=== PATIENT | male | born 1970 | race Caucasian/White ===

== ENCOUNTER 2016-02-18 13:12 | Inpatient (IN) | payer OTHER ==
[2016-02-18 13:23] VITALS: BMI 24.5
--- NOTE | 2016-02-18 14:13 | HP ---
COWS - Scale Resting Pulse: 0= [place] 80 or Below Sweatin=Flushed/Facial Moisture Restless Observation: 3= Extraneous Movement Pupil Size: 2= Moderately Dilated Bone or Joint Aches: 2= Severe Diffuse Aches Runny Nose/ Eye Tearin= Runny Nose/Eyes GI Upset > 30mins: 3= Vomiting/Diarrhea Tremor Observation: 2= Slight Tremor Visible Yawning Observation: 2= >3x During Session Anxiety or Irritability: 2=Irritable/Anxious Goose Flesh Skin: 0=Smooth Skin COWS Score: 20 Admission ROS BHS - HPI Chief Complaint: i need help to stop using heroin Allergies/Adverse Reactions: Allergies Allergy/AdvReac Type Severity Reaction Status Date / Time No Known Allergies Allergy Verified 02/18/16 14:03 History of Present Illness: this 45 years old male with heroin dependence,withdrawal symptom,last detox [place] 2014 bipolar disorder depression nicotine dependence weight loss longest period of sobriety 2 years Exam Limitations: No Limitations - Ebola screening Have you traveled outside of the country in the last 21 days: No Have you been sick,other than usual withdrawal symptoms: No Do you have a fever: No - Review of Systems Constitutional: Chills, Diaphoresis, Loss of Appetite, Malaise, Night Sweats, Changes in sleep, Weakness, Unexplained wgt Loss EENT: reports: Tearing, Nose Congestion Respiratory: reports: No Symptoms reported Cardiac: reports: Palpitations GI: reports: Constipated, Nausea, Poor Appetite, Abdominal cramping : reports: No Symptoms Reported Musculoskeletal: reports: Back Pain, Joint Pain, Muscle Pain, Joint Stiffness Integumentary: reports: Dryness Neuro: reports: Headache, Tremors Endocrine: reports: No Symptoms Reported Hematology: reports: No Symptoms Reported Psychiatric: reports: Depressed, other (bipolar disorder) Patient History - Patient Medical History Hx Anemia: No Hx Asthma: No Hx Chronic Obstructive Pulmonary Disease (COPD): No Hx Cancer: No Hx Cardiac Disorders: No Hx Congestive Heart Failure: No Hx Hypertension: No Hx Hypercholesterolemia: No Hx Pacemaker: No HX Cerebrovascular Accident: No Hx Seizures: No Hx Dementia: No Hx Diabetes: No Hx Gastrointestinal Disorders: No Hx Liver Disease: No Hx Genitourinary Disorders: No Hx Sexually Transmitted Disorders: No Hx Renal Disease (ESRD): No Hx Thyroid Disease: No Hx Human Immunodeficiency Virus (HIV): No (last 08/19) Hx Hepatitis C: Yes (monitoring by pmd) Hx Depression: Yes Hx Suicide Attempt: Yes (hang himself) Hx Bipolar Disorder: Yes Hx Schizophrenia: No Other Medical History: depression,no suicidal,no homicidal - Patient Surgical History Past Surgical History: No - PPD History Previous Implant?: Yes Documented Results: Negative w/o proof Implanted On Prior [facility] Admission?: No PPD to be Administered?: Yes - Smoking Cessation Smoking history: Current every day smoker Have you smoked in the past 12 months: Yes Aproximately how many cigarettes per day: 6 Cigars Per Day: 0 Hx Chewing Tobacco Use: No Initiated information on smoking cessation: Yes 'Breaking Loose' booklet given: 02/18/16 - Substance & Tx. History Hx Alcohol Use: No Hx Substance Use: Yes Substance Use Type: Heroin Hx Substance Use Treatment: Yes ([address] [place] [address]) - Substances Abused Heroin Route: Injection Frequency: Daily Amount used: 4 BAGS Age of first use: 16 Date of Last Use: 02/18/16 Family Disease History - Family Disease History Family History: Denies Admission Physical Exam [facility] - Vital Signs Vital Signs: Vital Signs - 24 hr 02/18/16 13:20 Temperature 98.3 F Pulse Rate 79 Respiratory 20 Rate Blood Pressure 139/85 - Physical General Appearance: Yes: Moderate Distress, Tremorous, Sweating, Anxious HEENTM: Yes: Nasal Congestion Respiratory: Yes: Lungs Clear Neck: Yes: Within Normal Limits Breast: Yes: Within Normal Limits Cardiology: Yes: Within Normal Limits, Regular Rhythm, Regular Rate, S1, S2 Abdominal: Yes: Normal Bowel Sounds, Non Tender, Flat, Soft, Organomegaly Genitourinary: Yes: Within Normal Limits Back: Yes: Muscle Spasm Musculoskeletal: Yes: Back pain, Joint Stiffness, Muscle Pain Extremities: Yes: Tremors 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 NML intact, Fully Oriented, Alert, Motor Strength 5/5 Integumentary: Yes: Dry Lymphatic: Yes: Within Normal Limits - Diagnostic (1) Opioid dependence with withdrawal Current Visit: Yes Status: Acute (2) Bipolar disorder Current Visit: Yes Status: Acute (3) Hepatitis C Current Visit: Yes Status: Acute (4) Weight loss Current Visit: Yes Status: Acute (5) Nicotine dependence Current Visit: Yes Status: Acute Cleared for Admission [facility] - Detox or Rehab [facility] Level of Care: Medically Managed Detox Regimen/Protocol: Methadone BHS Breath Alcohol Content Breath Alcohol Content: 0 Urine Drug Screen - Results Drug Screen Negative: No Urine Drug Screen Results: OPI-Opiates
[2016-02-18] MEDS ORDERED: diphenhydrAMINE HCL 50 MG CAPSULE PO PRN (14:27)
[2016-02-18] MEDS ORDERED: ACETAMINOPHEN 325 MG TABLET (FP) PO PRN (14:27)
[2016-02-18] MEDS ORDERED: MAG HYDROX/AL HYDROX/SIMETH 30 ML UNIT-DOSE CUP PO PRN (14:27)
[2016-02-18] MEDS ORDERED: MAGNESIUM HYDROX 2400MG/30ML ORAL SUSPENSION 30 ML CUP PO PRN (14:27)
[2016-02-18] MEDS ORDERED: LOPERAMIDE HCL 2 MG CAPSULE PO PRN (14:27)
[2016-02-18] MEDS ORDERED: hydrOXYzine PAMOATE 50 MG CAPSULE (FP) PO PRN (14:27)
[2016-02-18] MEDS ORDERED: IBUPROFEN 400 MG TABLET (FP) PO PRN (14:27)
[2016-02-18] MEDS ORDERED: P-EPHED 60MG/TRIPROLIDI 2.5MG TABLET PO PRN (14:27)
[2016-02-18] MEDS ORDERED: MENTHOL/PHENOL 1 EACH UD MM PRN (14:27)
[2016-02-18] MEDS ORDERED: MAGNESIUM CITRATE 300 ML BOTTLE PO PRN (14:27)
[2016-02-18] MEDS ORDERED: guaiFENesin/D-METHORPHAN HB 10 ML UNIT-DOSE CUPS PO PRN (14:27)
[2016-02-18] MEDS ORDERED: CYCLOBENZAPRINE HCL 10 MG TABLET (FP) PO PRN (14:32)
[2016-02-18] MEDS ORDERED: METHADONE HCL 10 MG TABLET (FOR DETOX USE ONLY) PO ONE ×2 (15:31→23:00)
[2016-02-18] MEDS: diazePAM 5 MG TABLET PO PRN (15:47)
[2016-02-18] MEDS: NICOTINE 21 MG/24 HOURS TOPICAL PATCH TD SCH (15:47)
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
[2016-02-18 17:54] LABS: URINE APPEARANCE CLOUDY; URINE BILIRUBIN NEGATIVE (NEGATIVE); URINE BLOOD NEGATIVE (NEGATIVE); URINE COLOR YELLOW; URINE GLUCOSE (UA) NEGATIVE (NEGATIVE); URINE KETONE NEGATIVE (NEGATIVE); URINE LEUK ESTERASE NEGATIVE (NEGATIVE); URINE NITRITE NEGATIVE (NEGATIVE); URINE PROTEIN NEGATIVE (NEGATIVE); URINE UROBILINOGEN NEGATIVE E.U./dl (0.2-1.0)
[2016-02-18] MEDS: THIAMINE HCL 100 MG TABLET (FP) PO SCH (22:05)
[2016-02-18] MEDS: QUEtiapine FUMARATE 200 MG TABLET PO SCH (22:05)
[2016-02-18] MEDS: cloNIDine HCL 0.1 MG TABLET PO SCH (22:06)
[2016-02-19] MEDS ORDERED: METHADONE HCL 10 MG TABLET (FOR DETOX USE ONLY) PO ONE (10:00)
[2016-02-19] MEDS: NICOTINE 21 MG/24 HOURS TOPICAL PATCH TD SCH (10:13)
[2016-02-19] MEDS: PRENATAL VITAMINS W/ FOLIC ACID TABLET (FP) PO SCH (10:14)
[2016-02-19] MEDS: cloNIDine HCL 0.1 MG TABLET PO SCH ×2 (10:14→22:10)
[2016-02-19 10:31] LABS: MCH 30.1 pg (25.7-33.7); MCHC 33.4 g/dl (32.0-35.9); MEAN PLT VOLUME 9.2 fl (7.5-11.1); PLATELET COUNT 282 K/MM3 (134-434); RDW 14.9 % (11.9-15.9); WHITE BLOOD COUNT 7.9 K/mm3 (4.0-10.0)
[2016-02-19 11:25] LABS: ALBUMIN 4.1 g/dl (3.4-5.0); ALK PHOS 99 U/L (45-117); ANION GAP 7 (8-16); BILIRUBIN,TOTAL 0.4 mg/dL (0.2-1.0); CALCIUM 9.9 mg/dL (8.5-10.1); CO2 29 mmol/L (21-32); GLUCOSE,RANDOM 100 mg/dL (74-106); SGOT/AST 33 U/L (15-37); SGPT/ALT 54 U/L (12-78); TOT PROT 8.5 g/dl (6.4-8.2)
[2016-02-19 11:34] LABS: HIV 1 & 2 AB NEGATIVE; HIV 1 AGp24 NEGATIVE
[2016-02-19] MEDS ORDERED: INFLUENZA VACCINE 45 MCG/0.5 ML (MDV 16-17) IM ONE (12:00)
[2016-02-19 12:15] LABS: SICKLE CELL SCREEN NEGATIVE (NEGATIVE)
--- NOTE | 2016-02-19 15:44 | PN ---
BHS COWS - Scale Resting Pulse: 1= [place] 81-100 Sweatin=Flushed/Facial Moisture Restless Observation: 1= Difficult to Sit Still Pupil Size: 2= Moderately Dilated Bone or Joint Aches: 0= None Runny Nose/ Eye Tearin= Runny Nose/Eyes GI Upset > 30mins: 0= None Tremor Observation of Outstretched Hands: 2= Slight Tremor Visible Yawning Observation: 0= None Anxiety or Irritability: 2=Irritable/Anxious Goose Flesh Skin: 0=Smooth Skin COWS Score: 12 S Progress Note (SOAP) Objective: 02/19/16 15:43 Laboratory Tests 02/18/16 02/19/16 02/19/16 17:00 08:00 08:00 WBC 7.9 RBC 4.68 Hgb 14.1 Hct 42.1 MCV 90.0 MCHC 33.4 RDW 14.9 Plt Count 282 MPV 9.2 Sickle Cell Screen Negative Sodium Potassium Chloride Carbon Dioxide Anion Gap BUN Creatinine Creat Clearance w eGFR Random Glucose Calcium Total Bilirubin AST ALT Alkaline Phosphatase Total Protein Albumin Urine Color Yellow Urine Appearance Cloudy Urine pH 8.0 Ur Specific [place] 1.018 Urine Protein Negative Urine Glucose (UA) Negative Urine Ketones Negative Urine Blood Negative Urine Nitrite Negative Urine Bilirubin Negative Urine Urobilinogen Negative Ur Leukocyte Esterase Negative RPR Titer HIV 1&2 Antibody Screen Negative HIV P24 Antigen Negative 02/19/16 02/19/16 08:00 08:00 WBC RBC Hgb Hct MCV MCHC RDW Plt Count MPV Sickle Cell Screen Sodium 139 Potassium 4.2 Chloride 103 Carbon Dioxide 29 Anion Gap 7 L BUN 13 Creatinine 1.0 Creat Clearance w eGFR > 60 Random Glucose 100 Calcium 9.9 Total Bilirubin 0.4 AST 33 ALT 54 Alkaline Phosphatase 99 Total Protein 8.5 H Albumin 4.1 Urine Color Urine Appearance Urine pH Ur Specific [place] Urine Protein Urine Glucose (UA) Urine Ketones Urine Blood Urine Nitrite Urine Bilirubin Urine Urobilinogen Ur Leukocyte Esterase RPR Titer Nonreactive HIV 1&2 Antibody Screen HIV P24 Antigen Vital Signs - 24 hr 02/18/16 02/18/16 02/19/16 17:43 22:10 00:27 Temperature 98.1 F 97.6 F Pulse Rate 86 72 Respiratory 18 19 18 Rate Blood Pressure 125/83 119/82 02/19/16 02/19/16 02/19/16 03:30 06:33 09:36 Temperature 97.3 F L 96.2 F L Pulse Rate 95 H 95 H 102 H Respiratory 18 18 18 Rate Blood Pressure 129/90 139/89 02/19/16 14:09 Temperature 97.7 F Pulse Rate 102 H Respiratory 20 Rate Blood Pressure 129/90 Assessment: 02/19/16 15:44 ongoing withdrawal Plan: cont detox protocol
--- NOTE | 2016-02-19 16:22 | EKG ---
Test Reason : Blood Pressure : / mmHG Vent. Rate : 079 BPM Atrial Rate : 079 BPM P-R Int : 146 ms QRS Dur : 140 ms QT Int : 394 ms P-R-T Axes : 056 -09 069 degrees QTc Int : 451 ms NORMAL SINUS RHYTHM LEFT BUNDLE BRANCH BLOCK ABNORMAL ECG NO PREVIOUS ECGS AVAILABLE Confirmed by NANCY NAVA, ALISON ([id number]) on 02/19/2016 4:22:08 PM Referred By: Confirmed By:ALISON CRUZ MD
[2016-02-19] MEDS: THIAMINE HCL 100 MG TABLET (FP) PO SCH (22:10)
[2016-02-19] MEDS: QUEtiapine FUMARATE 200 MG TABLET PO SCH (22:10)
[2016-02-19] MEDS: diazePAM 5 MG TABLET PO PRN (22:10)
[2016-02-20] MEDS ORDERED: METHADONE HCL 5 MG TABLET (FOR DETOX USE ONLY) PO ONE (10:00)
[2016-02-20] MEDS: NICOTINE 21 MG/24 HOURS TOPICAL PATCH TD SCH (10:09)
[2016-02-20] MEDS: cloNIDine HCL 0.1 MG TABLET PO SCH ×2 (10:09→22:05)
[2016-02-20] MEDS: PRENATAL VITAMINS W/ FOLIC ACID TABLET (FP) PO SCH (10:09)
[2016-02-20] MEDS: diazePAM 5 MG TABLET PO PRN ×3 (11:01→22:06)
--- NOTE | 2016-02-20 14:41 | EKG ---
Test Reason : Blood Pressure : / mmHG Vent. Rate : 090 BPM Atrial Rate : 090 BPM P-R Int : 148 ms QRS Dur : 134 ms QT Int : 374 ms P-R-T Axes : 055 -05 056 degrees QTc Int : 457 ms NORMAL SINUS RHYTHM LEFT BUNDLE BRANCH BLOCK ABNORMAL ECG WHEN COMPARED WITH ECG OF 18-FEB-2016 15:36, NO SIGNIFICANT CHANGE WAS FOUND Confirmed by ALISON CRUZ MD ([id number]) on 02/20/2016 2:40:51 PM Referred By: Confirmed By:ALISON CRUZ MD
--- NOTE | 2016-02-20 15:15 | PN ---
BHS COWS - Scale Resting Pulse: 2= [place] 101-120 Sweatin=Flushed/Facial Moisture Restless Observation: 1= Difficult to Sit Still Pupil Size: 0= Normal to Room Light Bone or Joint Aches: 2= Severe Diffuse Aches Runny Nose/ Eye Tearin= Runny Nose/Eyes GI Upset > 30mins: 2= Nausea/Diarrhea Tremor Observation of Outstretched Hands: 2= Slight Tremor Visible Yawning Observation: 0= None Anxiety or Irritability: 2=Irritable/Anxious Goose Flesh Skin: 0=Smooth Skin COWS Score: 15 BHS Progress Note (SOAP) Subjective: Sweating, tremor, restless, anxious, interrupted sleep (patient states seroquel and trazodone makes him feel more restless/anxious) Objective: 02/20/16 15:12 Last Vital Signs Temp Pulse Resp BP Pulse Ox 96.7 F L 107 H 18 122/80 02/20/16 13:40 02/20/16 13:40 02/20/16 13:40 02/20/16 13:40 Laboratory Tests 02/18/16 02/19/16 02/19/16 17:00 08:00 08:00 WBC 7.9 RBC 4.68 Hgb 14.1 Hct 42.1 MCV 90.0 MCHC 33.4 RDW 14.9 Plt Count 282 MPV 9.2 Sickle Cell Screen Negative Sodium Potassium Chloride Carbon Dioxide Anion Gap BUN Creatinine Creat Clearance w eGFR Random Glucose Calcium Total Bilirubin AST ALT Alkaline Phosphatase Total Protein Albumin Urine Color Yellow Urine Appearance Cloudy Urine pH 8.0 Ur Specific [place] 1.018 Urine Protein Negative Urine Glucose (UA) Negative Urine Ketones Negative Urine Blood Negative Urine Nitrite Negative Urine Bilirubin Negative Urine Urobilinogen Negative Ur Leukocyte Esterase Negative RPR Titer HIV 1&2 Antibody Screen Negative HIV P24 Antigen Negative 02/19/16 02/19/16 08:00 08:00 WBC RBC Hgb Hct MCV MCHC RDW Plt Count MPV Sickle Cell Screen Sodium 139 Potassium 4.2 Chloride 103 Carbon Dioxide 29 Anion Gap 7 L BUN 13 Creatinine 1.0 Creat Clearance w eGFR > 60 Random Glucose 100 Calcium 9.9 Total Bilirubin 0.4 AST 33 ALT 54 Alkaline Phosphatase 99 Total Protein 8.5 H Albumin 4.1 Urine Color Urine Appearance Urine pH Ur Specific [place] Urine Protein Urine Glucose (UA) Urine Ketones Urine Blood Urine Nitrite Urine Bilirubin Urine Urobilinogen Ur Leukocyte Esterase RPR Titer Nonreactive HIV 1&2 Antibody Screen HIV P24 Antigen Labs noted Assessment: 02/20/16 15:13 Withdrawal symptoms Plan: Continue detox Psychiatrist re-consultation for interrupted sleep (patient doesn't want seroquel or trazodone), will order ambien prn for sleep tonight until seen by psychiatrist
[2016-02-20] MEDS ORDERED: ZOLPIDEM TARTRATE 5 MG TABLET PO PRN (22:00)
[2016-02-20] MEDS: QUEtiapine FUMARATE 200 MG TABLET PO SCH (22:05)
[2016-02-20] MEDS: THIAMINE HCL 100 MG TABLET (FP) PO SCH (22:05)
[2016-02-21] MEDS: diazePAM 5 MG TABLET PO PRN ×2 (05:19→10:13)
[2016-02-21] MEDS ORDERED: METHADONE HCL 5 MG TABLET (FOR DETOX USE ONLY) PO ONE (10:00)
[2016-02-21] MEDS: cloNIDine HCL 0.1 MG TABLET PO SCH ×2 (10:12→22:09)
[2016-02-21] MEDS: NICOTINE 21 MG/24 HOURS TOPICAL PATCH TD SCH (10:13)
[2016-02-21] MEDS: PRENATAL VITAMINS W/ FOLIC ACID TABLET (FP) PO SCH (10:14)
--- NOTE | 2016-02-21 13:42 | PN ---
BHS Progress Note (SOAP) Subjective: SWEATING,INTERRUPTED SLEEP,RESTLESS Objective: 02/21/16 13:41 Vital Signs - 8 hr 02/21/16 02/21/16 06:41 10:27 Temperature 97.0 F L 97.4 F L Pulse Rate 86 101 H Respiratory 18 20 Rate Blood Pressure 122/83 121/84 Laboratory Tests 02/18/16 02/19/16 02/19/16 17:00 08:00 08:00 WBC 7.9 RBC 4.68 Hgb 14.1 Hct 42.1 MCV 90.0 MCHC 33.4 RDW 14.9 Plt Count 282 MPV 9.2 Sickle Cell Screen Negative Sodium Potassium Chloride Carbon Dioxide Anion Gap BUN Creatinine Creat Clearance w eGFR Random Glucose Calcium Total Bilirubin AST ALT Alkaline Phosphatase Total Protein Albumin Urine Color Yellow Urine Appearance Cloudy Urine pH 8.0 Ur Specific [place] 1.018 Urine Protein Negative Urine Glucose (UA) Negative Urine Ketones Negative Urine Blood Negative Urine Nitrite Negative Urine Bilirubin Negative Urine Urobilinogen Negative Ur Leukocyte Esterase Negative RPR Titer HIV 1&2 Antibody Screen Negative HIV P24 Antigen Negative 02/19/16 02/19/16 08:00 08:00 WBC RBC Hgb Hct MCV MCHC RDW Plt Count MPV Sickle Cell Screen Sodium 139 Potassium 4.2 Chloride 103 Carbon Dioxide 29 Anion Gap 7 L BUN 13 Creatinine 1.0 Creat Clearance w eGFR > 60 Random Glucose 100 Calcium 9.9 Total Bilirubin 0.4 AST 33 ALT 54 Alkaline Phosphatase 99 Total Protein 8.5 H Albumin 4.1 Urine Color Urine Appearance Urine pH Ur Specific [place] Urine Protein Urine Glucose (UA) Urine Ketones Urine Blood Urine Nitrite Urine Bilirubin Urine Urobilinogen Ur Leukocyte Esterase RPR Titer Nonreactive HIV 1&2 Antibody Screen HIV P24 Antigen LABS NOTED Assessment: 02/21/16 13:42 WITHDRAWAL SX. Plan: CONTINUE DETOX
[2016-02-21] MEDS: THIAMINE HCL 100 MG TABLET (FP) PO SCH (22:09)
[2016-02-21] MEDS: QUEtiapine FUMARATE 200 MG TABLET PO SCH (22:09)
--- NOTE | 2016-02-22 09:56 | PN ---
BHS Progress Note (SOAP) Subjective: DECREASED ANXIETY,SWEATS. Objective: 02/22/16 09:55 Vital Signs Temperature 97.6 F 02/22/16 09:27 Pulse Rate 86 02/22/16 09:27 Respiratory Rate 20 02/22/16 09:27 Blood Pressure 113/75 02/22/16 09:27 O2 Sat by Pulse Oximetry (%) Assessment: 02/22/16 09:55 DECREASED WITHDRAWAL SX Plan: CONTINUE DETOX
[2016-02-22] MEDS ORDERED: METHADONE HCL 10 MG TABLET (FOR DETOX USE ONLY) PO ONE (10:00)
[2016-02-22] MEDS: NICOTINE 21 MG/24 HOURS TOPICAL PATCH TD SCH (10:13)
[2016-02-22] MEDS: cloNIDine HCL 0.1 MG TABLET PO SCH (10:13)
[2016-02-22] MEDS: PRENATAL VITAMINS W/ FOLIC ACID TABLET (FP) PO SCH (10:13)
[2016-02-22 13:40] VITALS: BP 113/76; PULSE 87; TEMP 97.5
--- NOTE | 2016-02-22 15:12 | DS ---
[facility] Detox Discharge Summary Admission Date: 02/18/16 Discharge Date: 02/22/16 - History Present History: Opioid Dependence Additional Comments: D/C'D TODAY IN STABLE CONDITION. Pertinent Past History: HEP C HX BIPOLAR DISORDER - Physical Exam Results Vital Signs: Vital Signs Temperature 97.5 F L 02/22/16 13:40 Pulse Rate 87 02/22/16 13:40 Respiratory Rate 18 02/22/16 13:40 Blood Pressure 113/76 02/22/16 13:40 O2 Sat by Pulse Oximetry (%) Pertinent Admission Physical Exam Findings: WITHDRAWAL SX - Treatment Hospital Course: Detox Protocol Followed, Detoxed Safely, Responded well, Discharged Condition Good - Medication Discharge Medications: Ambulatory Orders Quetiapine Fumarate [Seroquel -] 500 mg PO HS 02/18/16 Trazodone HCl [Desyrel -] 50 mg PO HS 02/18/16 Quetiapine Fumarate [Seroquel -] 300 mg PO HS #30 tab 02/19/16 - Diagnosis (1) Nicotine dependence Current Visit: Yes Status: Acute (2) Opioid dependence with withdrawal Current Visit: Yes Status: Acute (3) Weight loss Current Visit: Yes Status: Acute (4) Hepatitis C Current Visit: Yes Status: Chronic (5) Bipolar disorder Current Visit: Yes Status: Acute (6) Substance induced mood disorder Current Visit: Yes Status: Acute (7) Insomnia Current Visit: Yes Status: Chronic - AMA Did Patient Leave Against Medical Advice: No
[2016-02-23] MEDS ORDERED: METHADONE HCL 5 MG TABLET (FOR DETOX USE ONLY) PO ONE (06:00)
== END 2016-02-22 15:55 | disposition home or self-care (01) | DRG 773 ==
LOC: YASAS 13:12 → Y3N 15:03
PROVIDERS: ADMIT Internal Medicine; ATTEND Internal Medicine
PROC: HZ2ZZZZ Detoxification Services for Substance Abuse Treatment (ICD-10-PCS; principal; 2016-02-18)
DX: F11.23 Opioid dependence with withdrawal (principal); F17.210 Nicotine dependence, cigarettes, uncomplicated; F19.24 Other psychoactive substance dependence with psychoactive substance-induced mood disorder; F31.9 Bipolar disorder, unspecified; G47.00 Insomnia, unspecified; Z87.898 Personal history of other specified conditions; Z91.5 Personal history of self-harm
CPT/HCPCS: 36415; 80053; 81003; 85027; 85660; 86593; 87389; 93005; 93010